=== PATIENT | male | born 1985 | race Caucasian/White ===

== ENCOUNTER 2017-08-18 12:08 | Emergency (ER) | payer SELFPAY ==
[2017-08-18] MEDS ORDERED: Albuterol 6.7 GM Inhaler INH ONE (12:29)
--- NOTE | 2017-08-18 13:08 | EDM.PDOC ---
ED HPI GENERAL MEDICAL PROBLEM - General Chief Complaint: Fever Stated Complaint: FEVER Time Seen by Provider: 08/18/17 12:19 Source of Information: Reports: Patient History Limitations: Reports: No Limitations - History of Present Illness INITIAL COMMENTS - FREE TEXT/NARRATIVE: The patient presents with a cough, fever, body aches and chills. This started about 5 days ago. [place] He went to stay in a hotel to get away from them. He feels short of breath. He is coughing up some phlegm. He does not smoke and he has no asthma or other health problems. He did not get his flu shot. Onset: Gradual Duration: Day(s): (5) Severity: Moderate Improves with: Reports: None Worsens with: Reports: None Associated Symptoms: Reports: Cough, cough w sputum, Fever/Chills, Shortness of Breath. Denies: Chest Pain, Headaches, Nausea/Vomiting Treatments PARTS ADVISOR: Reports: Other (see below) Other Treatments PARTS ADVISOR: none today Chest Pain Score (Numeric/FACES): 8 - Related Data Allergies Allergy/AdvReac Type Severity Reaction Status Date / Time No Known Allergies Allergy Verified 08/18/17 12:19 Home Meds: Home Meds Amoxicillin 1,000 mg PO BID #40 tab 08/18/17 [Rx] Codeine/Promethazine [Phenergan with Codeine] 5 - 10 ml PO Q6HR PRN #300 ml [Rx] Past Medical History - Past Health History Medical/Surgical History: Denies Medical/Surgical History Social & Family History - Tobacco Use Smoking Status *Q: Never Smoker - Caffeine Use Caffeine Use: Reports: Coffee, Energy Drinks, Soda, Tea - Recreational Drug Use Recreational Drug Use: No ED ROS GENERAL - Review of Systems Review Of Systems: See Below Constitutional: Reports: Fever, Chills HEENT: Reports: No Symptoms Respiratory: Reports: Cough Cardiovascular: Reports: No Symptoms Endocrine: Reports: No Symptoms GI/Abdominal: Reports: No Symptoms : Reports: No Symptoms Musculoskeletal: Reports: No Symptoms ED EXAM, GENERAL - Physical Exam Exam: See Below Exam Limited By: No Limitations General Appearance: Alert, No Apparent Distress Ears: Normal External Exam, Normal Canal, Other (Erythema and edema with fluid to the left TM) Nose: Normal Inspection Throat/Mouth: Normal Inspection Head: Atraumatic, Normocephalic Neck: Normal Inspection Respiratory/Chest: No Respiratory Distress, Wheezing (Mild wheeze) Cardiovascular: Regular Rate, Rhythm, No Edema, No Murmur GI/Abdominal: Soft, Non-Tender, No Organomegaly, No Mass Back Exam: Normal Inspection Extremities: Normal Inspection Neurological: Alert, Oriented, No Motor/Sensory Deficits Course - Vital Signs Last Recorded V/S: Last Vital Signs Temp 98.1 F 08/18/17 12:21 Pulse 94 08/18/17 12:21 Resp 20 08/18/17 12:21 BP 143/81 H 08/18/17 12:21 Pulse Ox 99 08/18/17 12:21 - Orders/Labs/Meds Orders: Active Orders 24 hr Category Date Time Status RT Post Treatment Assessment [RC] Click to Edit Care 08/18/17 12:30 Active RT Pre-Treatment Assessment [RC] Click to Edit Care 08/18/17 12:30 Active CXR [Chest 2V] [CR] Stat Exams 08/18/17 12:29 Taken Meds: Medications Discontinued Medications Generic Name Dose Route Start Last Admin Trade Name Freq PRN Reason Stop Dose Admin Albuterol 1 gm 08/18/17 12:29 08/18/17 12:54 Proventil Hfa INH 08/18/17 12:30 2 puff ONETIME ONE Administration - Re-Assessments/Exams Free Text/Narrative Re-Assessment/Exam: 08/18/17 13:07 I ordered a CXR, influenza and an albuterol inhaler 2 puffs. His CXR looks good. He does have otitis media and he is influenza positive. He is out of the window for tamiflu. I will get him amoxicillin for the ear infection and some phenergan with codeine for the cough. Departure - Departure Time of Disposition: 13:10 Disposition: Home, Self-Care 01 Condition: Good Clinical Impression: Influenza B Otitis media Qualifiers: Otitis media type: serous Chronicity: acute Laterality: left Recurrence: not specified as recurrent Qualified Code(s): H65.02 - Acute serous otitis media, left ear - Discharge Information Prescriptions: Codeine/Promethazine [Phenergan with Codeine] 5 - 10 ml PO Q6HR PRN #300 ml PRN Reason: Cough Amoxicillin 1,000 mg PO BID #40 tab Referrals: PCP,None [Primary Care Provider] - Forms: ED Department Discharge, ED Return to Work/School Form Additional Instructions: Take motrin or tylenol for any pain or fever. Use the inhaler 2 puffs every 4 to 6 hours as needed for shortness of breath. Take the phenergan with codeine 5 to 10mls every 6 hours as needed for cough. Take the amoxicillin 2 pills 2 times per day for 10 days. Please return if you are worse. - My Orders Last 24 Hours: My Active Orders 08/18/17 12:29 CXR [Chest 2V] [CR] Stat 08/18/17 12:30 RT Post Treatment Assessment [RC] Click to Edit RT Pre-Treatment Assessment [RC] Click to Edit - Assessment/Plan Last 24 Hours: My Active Orders 08/18/17 12:29 CXR [Chest 2V] [CR] Stat 08/18/17 12:30 RT Post Treatment Assessment [RC] Click to Edit RT Pre-Treatment Assessment [RC] Click to Edit
--- NOTE | 2017-08-18 16:00 | CR ---
Chest: Two views of the chest were obtained. Comparison: No prior study. Heart size within normal limits. Upper mediastinum is normal. Lungs are clear. Bony structures appear within normal limits for the patient's age. Impression: 1. Nothing acute is seen on two-view chest x-ray. Diagnostic code #1
== END 2017-08-18 13:25 | disposition home or self-care (01) ==
LOC: JD.ED 12:08
DX: J10.1 Influenza due to other identified influenza virus with other respiratory manifestations (principal); H65.02 Acute serous otitis media, left ear
CPT/HCPCS: 71046; 87804; 94664; 99284; A9270